=== PATIENT | male | born 1965 | race Caucasian/White ===

== ENCOUNTER 2018-02-22 10:18 | Day surgery (SDC) | payer OTHER ==
[~2018-02-22 10:18] MED LIST: CIPROFLOXACIN 400MG/D5W 200 ML IVPB
[2018-02-22] MEDS ORDERED: DIPHENHYDRAMINE 50 MG INJ IV (12:30)
[2018-02-22] MEDS ORDERED: HYDROmorphONE 1 MG/5 ML IV SYRINGE IV ×3 (12:30)
[2018-02-22] MEDS ORDERED: MEPERIDINE 25 MG INJ IV (12:30)
[2018-02-22] MEDS ORDERED: LABETALOL HCL 20MG INJ IV (12:30)
[2018-02-22] MEDS ORDERED: ONDANSETRON 4 MG INJ IV (12:30)
[2018-02-22] MEDS ORDERED: hydrALAzine 20 MG INJ IV (12:30)
[2018-02-22] MEDS ORDERED: LACTATED RINGER'S 1,000 ML IV (13:00)
[2018-02-22] MEDS ORDERED: METOCLOPRAMIDE 10 MG INJ (13:03)
[2018-02-22] MEDS ORDERED: MIDAZOLAM 1 MG/ML 2 ML INJ (13:03)
[2018-02-22] MEDS ORDERED: PROPOFOL 20 ML (13:05)
[2018-02-22] MEDS ORDERED: FENTAnyl 50 MCG/ML VIAL ×2 (13:05→13:13)
[2018-02-22] MEDS ORDERED: CIPROFLOXACIN 400MG/D5W 200 ML (13:13)
[2018-02-22] MEDS: IOHEXOL 300MG/ML 30 ML BTL (13:13)
[2018-02-22] MEDS ORDERED: EPHEDrine SULFATE 50 MG/5 ML SYG (13:54)
[2018-02-22] MEDS ORDERED: ONDANSETRON 4 MG INJ (13:57)
[2018-02-22] MEDS ORDERED: HYDROCODONE/APAP (5/325) TAB PO (14:30)
== END 2018-02-22 16:15 | disposition home or self-care (01) ==
LOC: SDS 10:18
DX: N20.1 Calculus of ureter (principal)
CPT/HCPCS: 52356; 74430; 87086; 88300

== ENCOUNTER 2018-03-02 08:56 | Emergency (ER) | payer OTHER ==
[2018-03-02 10:10] LABS: ADD UMIC YES; UR ASCORBIC ACID NEGATIVE (NEGATIVE); UR BACTERIA FEW /HPF (NONE SEEN); UR BILIRUBIN (Dip) NEGATIVE (NEGATIVE); UR BLOOD (Dip) 2+ mg/dL (NEGATIVE); UR CLARITY CLEAR (CLEAR); UR COLOR AMBER (YELLOW); UR GLUCOSE (Dip) NEGATIVE (NEGATIVE); UR KETONES (Dip) TRACE mg/dL (NEGATIVE); UR LEUKOCYTE ESTERASE (Dip) NEGATIVE Leu/ul (NEGATIVE); UR MUCUS MANY /HPF (NONE SEEN); UR NITRITE (Dip) NEGATIVE (NEGATIVE); UR RBC 13 /HPF (0-5); UR SPECIFIC GRAVITY (Dip) 1.026 (1.003-1.030); UR SQUAMOUS EPITHELIAL CELL FEW /HPF (FEW); UR TOTAL PROTEIN (Dip) 2+ mg/dl (NEGATIVE); UR UROBILINOGEN (Dip) 2+ mg/dL (NEGATIVE); UR WBC 7 /HPF (0-5)
== END 2018-03-02 10:46 | disposition home or self-care (01) ==
LOC: FTE 08:56
DX: R68.83 Chills (without fever) (principal); I10 Essential (primary) hypertension; F17.210 Nicotine dependence, cigarettes, uncomplicated
CPT/HCPCS: 81001; 87086; 99283